=== PATIENT | female | born 1930 | race Two or more races ===

== ENCOUNTER 2019-06-28 09:35 | Outpatient (CLI) | payer MEDICARE, MEDICAID | END 2019-06-28 23:59 | disposition home health service (06) | LOC: WOU 09:35 | PROVIDERS: ATTEND Podiatrist Foot & Ankle Surgery | DX: I87.2 Venous insufficiency (chronic) (peripheral) (principal); L97.322 Non-pressure chronic ulcer of left ankle with fat layer exposed; L03.116 Cellulitis of left lower limb; I73.9 Peripheral vascular disease, unspecified; L84 Corns and callosities; B35.3 Tinea pedis; R60.0 Localized edema; M79.671 Pain in right foot | CPT/HCPCS: 11042; 11045; 87070-TC; 87075-TC; 87186-TC ==

== ENCOUNTER 2019-07-03 12:30 | Outpatient (CLI) | payer MEDICARE, MEDICAID | END 2019-07-03 23:59 | disposition home health service (06) | LOC: WOU 12:30 | PROVIDERS: ATTEND Podiatrist Foot & Ankle Surgery | DX: I87.2 Venous insufficiency (chronic) (peripheral) (principal); L97.322 Non-pressure chronic ulcer of left ankle with fat layer exposed; L97.512 Non-pressure chronic ulcer of other part of right foot with fat layer exposed; L03.116 Cellulitis of left lower limb; B96.5 Pseudomonas (aeruginosa) (mallei) (pseudomallei) as the cause of diseases classified elsewhere; I73.9 Peripheral vascular disease, unspecified; L84 Corns and callosities; M79.671 Pain in right foot; Z79.02 Long term (current) use of antithrombotics/antiplatelets | CPT/HCPCS: 11042; 11045; 87070-TC; 87075-TC; 87186-TC ==

== ENCOUNTER 2019-07-10 12:35 | Outpatient (CLI) | payer MEDICARE, MEDICAID | END 2019-07-10 23:59 | disposition home health service (06) | LOC: WOU 12:35 | PROVIDERS: ATTEND Podiatrist Foot & Ankle Surgery | DX: I87.2 Venous insufficiency (chronic) (peripheral) (principal); L97.322 Non-pressure chronic ulcer of left ankle with fat layer exposed; L03.116 Cellulitis of left lower limb; I73.9 Peripheral vascular disease, unspecified; M79.671 Pain in right foot; Z79.02 Long term (current) use of antithrombotics/antiplatelets | CPT/HCPCS: 11042; 11045 ==

== ENCOUNTER 2019-07-17 12:40 | Outpatient (CLI) | payer MEDICARE, MEDICAID | END 2019-07-17 23:59 | disposition home health service (06) | LOC: WOU 12:40 | PROVIDERS: ATTEND Podiatrist Foot & Ankle Surgery | DX: I87.2 Venous insufficiency (chronic) (peripheral) (principal); L97.322 Non-pressure chronic ulcer of left ankle with fat layer exposed; L03.116 Cellulitis of left lower limb; I73.9 Peripheral vascular disease, unspecified; L84 Corns and callosities; Z79.02 Long term (current) use of antithrombotics/antiplatelets | CPT/HCPCS: 11042; 11045 ==

== ENCOUNTER 2019-07-24 13:20 | Outpatient (CLI) | payer MEDICARE, MEDICAID | END 2019-07-24 23:59 | disposition home health service (06) | LOC: WOU 13:20 | PROVIDERS: ATTEND Podiatrist Foot & Ankle Surgery | DX: I87.2 Venous insufficiency (chronic) (peripheral) (principal); L97.322 Non-pressure chronic ulcer of left ankle with fat layer exposed; I73.9 Peripheral vascular disease, unspecified; L03.116 Cellulitis of left lower limb; L84 Corns and callosities; M79.671 Pain in right foot | CPT/HCPCS: 11042; 11045 ==

== ENCOUNTER 2019-07-31 12:35 | Outpatient (CLI) | payer MEDICARE, MEDICAID | END 2019-07-31 23:59 | disposition home health service (06) | LOC: WOU 12:35 | PROVIDERS: ATTEND Podiatrist Foot & Ankle Surgery | DX: I87.2 Venous insufficiency (chronic) (peripheral) (principal); L97.322 Non-pressure chronic ulcer of left ankle with fat layer exposed; L03.116 Cellulitis of left lower limb; B96.5 Pseudomonas (aeruginosa) (mallei) (pseudomallei) as the cause of diseases classified elsewhere; I73.9 Peripheral vascular disease, unspecified; Z79.02 Long term (current) use of antithrombotics/antiplatelets | CPT/HCPCS: 11042 ==

== ENCOUNTER 2019-08-07 12:30 | Outpatient (CLI) | payer MEDICARE, MEDICAID | END 2019-08-07 23:59 | disposition home health service (06) | LOC: WOU 12:30 | PROVIDERS: ATTEND Podiatrist Foot & Ankle Surgery | DX: I87.2 Venous insufficiency (chronic) (peripheral) (principal); L97.322 Non-pressure chronic ulcer of left ankle with fat layer exposed; L03.116 Cellulitis of left lower limb; B96.5 Pseudomonas (aeruginosa) (mallei) (pseudomallei) as the cause of diseases classified elsewhere; I73.9 Peripheral vascular disease, unspecified; L84 Corns and callosities; M79.671 Pain in right foot; Z79.02 Long term (current) use of antithrombotics/antiplatelets | CPT/HCPCS: 11042 ==

== ENCOUNTER 2019-08-14 10:30 | Outpatient (CLI) | payer MEDICARE, MEDICAID | END 2019-08-14 23:59 | disposition home health service (06) | LOC: WOU 10:30 | PROVIDERS: ATTEND Podiatrist Foot & Ankle Surgery | DX: I87.2 Venous insufficiency (chronic) (peripheral) (principal); L97.322 Non-pressure chronic ulcer of left ankle with fat layer exposed; L03.116 Cellulitis of left lower limb; I73.9 Peripheral vascular disease, unspecified; L84 Corns and callosities; M79.671 Pain in right foot; Z79.02 Long term (current) use of antithrombotics/antiplatelets | CPT/HCPCS: 11042; 11045 ==

== ENCOUNTER 2019-08-28 12:45 | Outpatient (CLI) | payer MEDICARE, MEDICAID | END 2019-08-28 23:59 | disposition home health service (06) | LOC: WOU 12:45 | PROVIDERS: ATTEND Podiatrist Foot & Ankle Surgery | DX: I87.2 Venous insufficiency (chronic) (peripheral) (principal); L97.322 Non-pressure chronic ulcer of left ankle with fat layer exposed; I73.9 Peripheral vascular disease, unspecified; L03.116 Cellulitis of left lower limb; M79.671 Pain in right foot; L84 Corns and callosities; Z79.02 Long term (current) use of antithrombotics/antiplatelets | CPT/HCPCS: 11042; 11045 ==

== ENCOUNTER 2019-09-04 12:45 | Outpatient (CLI) | payer MEDICARE, MEDICAID | END 2019-09-04 23:59 | disposition home health service (06) | LOC: WOU 12:45 | PROVIDERS: ATTEND Podiatrist Foot & Ankle Surgery | DX: I87.2 Venous insufficiency (chronic) (peripheral) (principal); L97.322 Non-pressure chronic ulcer of left ankle with fat layer exposed; I73.9 Peripheral vascular disease, unspecified; M79.671 Pain in right foot; Z79.02 Long term (current) use of antithrombotics/antiplatelets | CPT/HCPCS: 11042 ==

== ENCOUNTER 2019-09-11 12:50 | Outpatient (CLI) | payer MEDICARE, MEDICAID | END 2019-09-11 23:59 | disposition home health service (06) | LOC: WOU 12:50 | PROVIDERS: ATTEND Podiatrist Foot & Ankle Surgery | DX: I87.2 Venous insufficiency (chronic) (peripheral) (principal); L97.322 Non-pressure chronic ulcer of left ankle with fat layer exposed; I73.9 Peripheral vascular disease, unspecified; Z79.02 Long term (current) use of antithrombotics/antiplatelets | CPT/HCPCS: 11042 ==

== ENCOUNTER 2019-09-18 13:05 | Outpatient (CLI) | payer MEDICARE, MEDICAID | END 2019-09-18 23:59 | disposition home health service (06) | LOC: WOU 13:05 | PROVIDERS: ATTEND Podiatrist Foot & Ankle Surgery | DX: I87.2 Venous insufficiency (chronic) (peripheral) (principal); L97.322 Non-pressure chronic ulcer of left ankle with fat layer exposed; I73.9 Peripheral vascular disease, unspecified; L84 Corns and callosities; M79.671 Pain in right foot; Z79.02 Long term (current) use of antithrombotics/antiplatelets | CPT/HCPCS: 11042 ==

== ENCOUNTER 2019-09-25 12:45 | Outpatient (CLI) | payer MEDICARE, MEDICAID | END 2019-09-25 23:59 | disposition home health service (06) | LOC: WOU 12:45 | PROVIDERS: ATTEND Podiatrist Foot & Ankle Surgery | DX: I87.2 Venous insufficiency (chronic) (peripheral) (principal); L97.322 Non-pressure chronic ulcer of left ankle with fat layer exposed; L84 Corns and callosities; I73.9 Peripheral vascular disease, unspecified; M79.675 Pain in left toe(s); Z79.02 Long term (current) use of antithrombotics/antiplatelets; M06.9 Rheumatoid arthritis, unspecified; Z96.642 Presence of left artificial hip joint | CPT/HCPCS: 11042 ==

== ENCOUNTER 2019-10-02 12:55 | Outpatient (CLI) | payer MEDICARE, MEDICAID | END 2019-10-02 23:59 | disposition home health service (06) | LOC: WOU 12:55 | PROVIDERS: ATTEND Podiatrist Foot & Ankle Surgery | DX: I87.2 Venous insufficiency (chronic) (peripheral) (principal); L97.322 Non-pressure chronic ulcer of left ankle with fat layer exposed; L03.116 Cellulitis of left lower limb; I73.9 Peripheral vascular disease, unspecified; M79.671 Pain in right foot; L84 Corns and callosities; Z79.02 Long term (current) use of antithrombotics/antiplatelets | CPT/HCPCS: 11042 ==

== ENCOUNTER 2019-10-09 12:43 | Outpatient (CLI) | payer MEDICARE, MEDICAID | END 2019-10-09 23:59 | disposition home health service (06) | LOC: WOU 12:43 | PROVIDERS: ATTEND Podiatrist Foot & Ankle Surgery | DX: I87.2 Venous insufficiency (chronic) (peripheral) (principal); L97.322 Non-pressure chronic ulcer of left ankle with fat layer exposed; L03.116 Cellulitis of left lower limb; L84 Corns and callosities; I73.9 Peripheral vascular disease, unspecified; M79.675 Pain in left toe(s); Z95.810 Presence of automatic (implantable) cardiac defibrillator; Z79.02 Long term (current) use of antithrombotics/antiplatelets | CPT/HCPCS: 11042 ==

== ENCOUNTER 2019-10-16 12:45 | Outpatient (CLI) | payer MEDICARE, MEDICAID ==
[2019-10-16] MEDS ORDERED: LIDOCAINE SOLN 4% 50 ML BOTTLE ONE (12:47)
[2019-10-16] MEDS ORDERED: GENTAMICIN 0.1% CREAM 15 GM TUBE ONE (13:09)
[2019-10-16] MEDS ORDERED: CLOTRIMAZOLE 1% 15 GM TUBE TP ONE (13:09)
[2019-10-16] MEDS ORDERED: MUPIROCIN 2% CREAM 15 GM TUBE TP ONE (13:09)
[2019-10-16] MEDS ORDERED: UREA 10% -AHA 4% CREAM 57 GM TUBE ONE (13:10)
[2019-10-16] MEDS ORDERED: HYDROCORTISONE 1% CREAM 28.35 GM TUBE TP ONE (13:10)
== END 2019-10-16 23:59 | disposition home health service (06) ==
LOC: WOU 12:45
PROVIDERS: ATTEND Podiatrist Foot & Ankle Surgery
DX: I87.2 Venous insufficiency (chronic) (peripheral) (principal); L97.322 Non-pressure chronic ulcer of left ankle with fat layer exposed; I73.9 Peripheral vascular disease, unspecified; L84 Corns and callosities; M79.672 Pain in left foot; M79.671 Pain in right foot; Z79.02 Long term (current) use of antithrombotics/antiplatelets
CPT/HCPCS: 11042

== ENCOUNTER 2019-10-23 13:30 | Outpatient (CLI) | payer MEDICARE, MEDICAID ==
[2019-10-23] MEDS ORDERED: UREA 10% -AHA 4% CREAM 57 GM TUBE ONE (14:07)
[2019-10-23] MEDS ORDERED: MUPIROCIN 2% CREAM 15 GM TUBE TP ONE (14:08)
[2019-10-23] MEDS ORDERED: HYDROCORTISONE 1% CREAM 28.35 GM TUBE TP ONE (14:11)
[2019-10-23] MEDS ORDERED: CLOTRIMAZOLE 1% 15 GM TUBE TP ONE (14:12)
[2019-10-23] MEDS ORDERED: GENTAMICIN 0.1% CREAM 15 GM TUBE ONE (14:13)
== END 2019-10-23 23:59 | disposition home health service (06) ==
LOC: WOU 13:30
PROVIDERS: ATTEND Podiatrist Foot & Ankle Surgery
DX: I87.2 Venous insufficiency (chronic) (peripheral) (principal); L97.322 Non-pressure chronic ulcer of left ankle with fat layer exposed; L03.116 Cellulitis of left lower limb; I73.9 Peripheral vascular disease, unspecified; L84 Corns and callosities; M79.675 Pain in left toe(s); M79.671 Pain in right foot; Z79.02 Long term (current) use of antithrombotics/antiplatelets
CPT/HCPCS: 11042; 11045

== ENCOUNTER 2019-10-30 13:00 | Outpatient (CLI) | payer MEDICARE, MEDICAID | END 2019-10-30 23:59 | disposition home health service (06) | LOC: WOU 13:00 | PROVIDERS: ATTEND Podiatrist Foot & Ankle Surgery | DX: I87.2 Venous insufficiency (chronic) (peripheral) (principal); L97.322 Non-pressure chronic ulcer of left ankle with fat layer exposed; I73.9 Peripheral vascular disease, unspecified; L84 Corns and callosities; B35.1 Tinea unguium; M79.674 Pain in right toe(s); M79.675 Pain in left toe(s); L60.2 Onychogryphosis; Z79.02 Long term (current) use of antithrombotics/antiplatelets | CPT/HCPCS: 11042 ==

== ENCOUNTER 2019-11-06 12:40 | Outpatient (CLI) | payer MEDICARE, MEDICAID ==
[2019-11-06] MEDS ORDERED: CLOTRIMAZOLE 1% 15 GM TUBE TP ONE (13:50)
== END 2019-11-06 23:59 | disposition home health service (06) ==
LOC: WOU 12:40
PROVIDERS: ATTEND Podiatrist Foot & Ankle Surgery
DX: I87.2 Venous insufficiency (chronic) (peripheral) (principal); L97.322 Non-pressure chronic ulcer of left ankle with fat layer exposed; I73.9 Peripheral vascular disease, unspecified; L84 Corns and callosities; B35.1 Tinea unguium; M79.675 Pain in left toe(s); M79.674 Pain in right toe(s); Z96.642 Presence of left artificial hip joint; Z79.02 Long term (current) use of antithrombotics/antiplatelets
CPT/HCPCS: 11042

== ENCOUNTER 2019-11-13 12:45 | Outpatient (CLI) | payer MEDICARE, MEDICAID ==
[2019-11-13] MEDS ORDERED: LIDOCAINE SOLN 4% 50 ML BOTTLE ONE (12:49)
[2019-11-13] MEDS ORDERED: MUPIROCIN 2% CREAM 15 GM TUBE TP ONE (13:20)
[2019-11-13] MEDS ORDERED: GENTAMICIN 0.1% CREAM 15 GM TUBE ONE (13:21)
== END 2019-11-13 23:59 | disposition home health service (06) ==
LOC: WOU 12:45
PROVIDERS: ATTEND Podiatrist Foot & Ankle Surgery
DX: I87.2 Venous insufficiency (chronic) (peripheral) (principal); L97.322 Non-pressure chronic ulcer of left ankle with fat layer exposed; I73.9 Peripheral vascular disease, unspecified; B35.1 Tinea unguium; Z79.02 Long term (current) use of antithrombotics/antiplatelets
CPT/HCPCS: 11042; A6452

== ENCOUNTER 2019-11-20 12:40 | Outpatient (CLI) | payer MEDICARE, MEDICAID ==
[2019-11-20] MEDS ORDERED: LIDOCAINE SOLN 4% 50 ML BOTTLE ONE (13:11)
== END 2019-11-20 23:59 | disposition home health service (06) ==
LOC: WOU 12:40
PROVIDERS: ATTEND Podiatrist Foot & Ankle Surgery
DX: I87.2 Venous insufficiency (chronic) (peripheral) (principal); L97.322 Non-pressure chronic ulcer of left ankle with fat layer exposed; I73.9 Peripheral vascular disease, unspecified; B35.1 Tinea unguium; L84 Corns and callosities; M79.675 Pain in left toe(s); M79.674 Pain in right toe(s); Z79.02 Long term (current) use of antithrombotics/antiplatelets
CPT/HCPCS: 11042; A6253

== ENCOUNTER 2019-11-27 12:40 | Outpatient (CLI) | payer MEDICARE, MEDICAID ==
[2019-11-27] MEDS ORDERED: GENTAMICIN 0.1% CREAM 15 GM TUBE ONE (13:54)
== END 2019-11-27 23:59 | disposition home health service (06) ==
LOC: WOU 12:40
PROVIDERS: ATTEND Podiatrist Foot & Ankle Surgery
DX: I87.2 Venous insufficiency (chronic) (peripheral) (principal); L97.322 Non-pressure chronic ulcer of left ankle with fat layer exposed; I73.9 Peripheral vascular disease, unspecified; B35.1 Tinea unguium; M79.675 Pain in left toe(s); M79.674 Pain in right toe(s); Z79.02 Long term (current) use of antithrombotics/antiplatelets
CPT/HCPCS: 11042; A6253

== ENCOUNTER 2019-12-04 12:55 | Outpatient (CLI) | payer MEDICARE, MEDICAID ==
[2019-12-04] MEDS ORDERED: LIDOCAINE SOLN 4% 50 ML BOTTLE ONE (12:56)
[2019-12-04] MEDS ORDERED: MUPIROCIN 2% CREAM 15 GM TUBE TP ONE (13:31)
[2019-12-04] MEDS ORDERED: GENTAMICIN 0.1% CREAM 15 GM TUBE ONE (13:31)
[2019-12-04] MEDS ORDERED: HYDROCORTISONE 1% CREAM 28.35 GM TUBE TP ONE (13:32)
== END 2019-12-04 23:59 | disposition home health service (06) ==
LOC: WOU 12:55
PROVIDERS: ATTEND Podiatrist Foot & Ankle Surgery
DX: I87.2 Venous insufficiency (chronic) (peripheral) (principal); L97.322 Non-pressure chronic ulcer of left ankle with fat layer exposed; I73.9 Peripheral vascular disease, unspecified; B35.1 Tinea unguium; M79.675 Pain in left toe(s); M79.674 Pain in right toe(s); Z79.02 Long term (current) use of antithrombotics/antiplatelets
CPT/HCPCS: 11042; A6253

== ENCOUNTER 2019-12-11 12:40 | Outpatient (CLI) | payer MEDICARE, MEDICAID ==
[2019-12-11] MEDS ORDERED: MUPIROCIN 2% CREAM 15 GM TUBE TP ONE (13:20)
[2019-12-11] MEDS ORDERED: GENTAMICIN 0.1% CREAM 15 GM TUBE ONE (13:20)
== END 2019-12-11 23:59 | disposition home health service (06) ==
LOC: WOU 12:40
PROVIDERS: ATTEND Podiatrist Foot & Ankle Surgery
DX: I87.2 Venous insufficiency (chronic) (peripheral) (principal); L97.322 Non-pressure chronic ulcer of left ankle with fat layer exposed; I73.9 Peripheral vascular disease, unspecified; L84 Corns and callosities; B35.1 Tinea unguium; M79.675 Pain in left toe(s); M79.674 Pain in right toe(s); M20.42 Other hammer toe(s) (acquired), left foot; Z79.02 Long term (current) use of antithrombotics/antiplatelets
CPT/HCPCS: 11042; A6253

== ENCOUNTER 2019-12-25 12:40 | Outpatient (CLI) | payer MEDICARE, MEDICAID ==
[2019-12-25] MEDS ORDERED: MUPIROCIN 2% CREAM 15 GM TUBE TP ONE (13:03)
[2019-12-25] MEDS ORDERED: GENTAMICIN 0.1% CREAM 15 GM TUBE ONE (13:03)
== END 2019-12-25 23:59 | disposition home health service (06) ==
LOC: WOU 12:40
PROVIDERS: ATTEND Podiatrist Foot & Ankle Surgery
DX: I87.2 Venous insufficiency (chronic) (peripheral) (principal); L97.322 Non-pressure chronic ulcer of left ankle with fat layer exposed; B35.1 Tinea unguium; M79.675 Pain in left toe(s); M79.674 Pain in right toe(s); Z79.02 Long term (current) use of antithrombotics/antiplatelets
CPT/HCPCS: 11042; A6253

== ENCOUNTER 2020-01-01 12:40 | Outpatient (CLI) | payer MEDICARE, MEDICAID ==
[2020-01-01] MEDS ORDERED: MUPIROCIN 2% CREAM 15 GM TUBE TP ONE (12:46)
[2020-01-01] MEDS ORDERED: GENTAMICIN 0.1% CREAM 15 GM TUBE ONE (12:47)
[2020-01-01] MEDS ORDERED: LIDOCAINE SOLN 4% 50 ML BOTTLE ONE (12:48)
== END 2020-01-01 23:59 | disposition home health service (06) ==
LOC: WOU 12:40
PROVIDERS: ATTEND Podiatrist Foot & Ankle Surgery
DX: I87.2 Venous insufficiency (chronic) (peripheral) (principal); L97.322 Non-pressure chronic ulcer of left ankle with fat layer exposed; L89.891 Pressure ulcer of other site, stage 1; B35.1 Tinea unguium; L84 Corns and callosities; M79.675 Pain in left toe(s); Z96.642 Presence of left artificial hip joint
CPT/HCPCS: 11043; A6253

== ENCOUNTER 2020-01-08 12:50 | Outpatient (CLI) | payer MEDICARE, MEDICAID ==
[~2020-01-08 12:50] MED LIST: LIDOCAINE SOLN 4% 50 ML BOTTLE ONE
[2020-01-08] MEDS ORDERED: COLLAGENASE 5 GM TUBE UD TP ONE (13:57)
[2020-01-08] MEDS ORDERED: TDAP [DIPH/PERTUSSIS/TET] 0.5 ML VIAL IM ONE (14:30)
== END 2020-01-08 23:59 | disposition home health service (06) ==
LOC: WOU 12:50
PROVIDERS: ATTEND Podiatrist Foot & Ankle Surgery
DX: I87.2 Venous insufficiency (chronic) (peripheral) (principal); L97.322 Non-pressure chronic ulcer of left ankle with fat layer exposed; S81.811A Laceration without foreign body, right lower leg, initial encounter; W54.8XXA Other contact with dog, initial encounter; Y92.89 Other specified places as the place of occurrence of the external cause; I73.9 Peripheral vascular disease, unspecified; B35.1 Tinea unguium; Z79.02 Long term (current) use of antithrombotics/antiplatelets
CPT/HCPCS: 11042; 90471; 90715; A6253

== ENCOUNTER 2020-01-10 10:00 | Outpatient (CLI) | payer MEDICARE, MEDICAID | END 2020-01-10 23:59 | disposition home health service (06) | LOC: WOU 10:00 | PROVIDERS: ATTEND Podiatrist Foot & Ankle Surgery | DX: I87.2 Venous insufficiency (chronic) (peripheral) (principal); L97.322 Non-pressure chronic ulcer of left ankle with fat layer exposed; L03.115 Cellulitis of right lower limb; S81.811A Laceration without foreign body, right lower leg, initial encounter; W54.8XXA Other contact with dog, initial encounter; Y92.89 Other specified places as the place of occurrence of the external cause; L84 Corns and callosities; B35.1 Tinea unguium; Z79.02 Long term (current) use of antithrombotics/antiplatelets | CPT/HCPCS: 11042; A6253 ==

== ENCOUNTER 2020-01-14 09:45 | Outpatient (CLI) | payer MEDICARE, MEDICAID ==
[2020-01-14] MEDS ORDERED: CEFTRIAXONE 1 G VIAL IM ONE (11:00)
== END 2020-01-14 23:59 | disposition home health service (06) ==
LOC: WOU 09:45
PROVIDERS: ATTEND Podiatrist Foot & Ankle Surgery
DX: I87.2 Venous insufficiency (chronic) (peripheral) (principal); L97.322 Non-pressure chronic ulcer of left ankle with fat layer exposed; L03.115 Cellulitis of right lower limb; S81.811A Laceration without foreign body, right lower leg, initial encounter; W54.8XXA Other contact with dog, initial encounter; Y92.89 Other specified places as the place of occurrence of the external cause; Z79.02 Long term (current) use of antithrombotics/antiplatelets
CPT/HCPCS: 11042; 96372; A6253; J0696

== ENCOUNTER 2020-01-17 09:45 | Outpatient (CLI) | payer MEDICARE, MEDICAID ==
[2020-01-17] MEDS ORDERED: LIDOCAINE SOLN 4% 50 ML BOTTLE ONE (10:00)
[2020-01-17] MEDS ORDERED: CEFTRIAXONE 1 G VIAL IM ONE (10:30)
[2020-01-17] MEDS ORDERED: MUPIROCIN 2% CREAM 15 GM TUBE TP ONE (10:37)
[2020-01-17] MEDS ORDERED: GENTAMICIN 0.1% CREAM 15 GM TUBE ONE (10:38)
== END 2020-01-17 23:59 | disposition home health service (06) ==
LOC: WOU 09:45
PROVIDERS: ATTEND Podiatrist Foot & Ankle Surgery
DX: I87.2 Venous insufficiency (chronic) (peripheral) (principal); L97.322 Non-pressure chronic ulcer of left ankle with fat layer exposed; L03.115 Cellulitis of right lower limb; S81.811A Laceration without foreign body, right lower leg, initial encounter; Y92.89 Other specified places as the place of occurrence of the external cause; W54.8XXA Other contact with dog, initial encounter; L84 Corns and callosities; B35.1 Tinea unguium; M79.675 Pain in left toe(s); Z79.02 Long term (current) use of antithrombotics/antiplatelets
CPT/HCPCS: 11042; 87070; 87075; 96372; A6253; J0696

== ENCOUNTER 2020-01-22 12:45 | Outpatient (CLI) | payer MEDICARE, MEDICAID ==
[2020-01-22] MEDS ORDERED: LIDOCAINE SOLN 4% 50 ML BOTTLE ONE (13:00)
== END 2020-01-22 23:59 | disposition home health service (06) ==
LOC: WOU 12:45
PROVIDERS: ATTEND Podiatrist Foot & Ankle Surgery
DX: I87.2 Venous insufficiency (chronic) (peripheral) (principal); L97.322 Non-pressure chronic ulcer of left ankle with fat layer exposed; S81.811A Laceration without foreign body, right lower leg, initial encounter; W54.8XXA Other contact with dog, initial encounter; Y92.89 Other specified places as the place of occurrence of the external cause; L03.115 Cellulitis of right lower limb; L84 Corns and callosities; B35.1 Tinea unguium; M79.675 Pain in left toe(s)
CPT/HCPCS: 11042; A6253

== ENCOUNTER 2020-01-24 09:55 | Outpatient (CLI) | payer MEDICARE, MEDICAID ==
[2020-01-24] MEDS ORDERED: LIDOCAINE SOLN 4% 50 ML BOTTLE ONE (10:17)
== END 2020-01-24 23:59 | disposition home health service (06) ==
LOC: WOU 09:55
PROVIDERS: ATTEND Podiatrist Foot & Ankle Surgery
DX: I87.2 Venous insufficiency (chronic) (peripheral) (principal); L97.322 Non-pressure chronic ulcer of left ankle with fat layer exposed; L03.115 Cellulitis of right lower limb; S81.811A Laceration without foreign body, right lower leg, initial encounter; W54.8XXA Other contact with dog, initial encounter; Y92.89 Other specified places as the place of occurrence of the external cause; B35.1 Tinea unguium; Z79.02 Long term (current) use of antithrombotics/antiplatelets
CPT/HCPCS: 11042; A6253

== ENCOUNTER 2020-01-29 12:45 | Outpatient (CLI) | payer MEDICARE, MEDICAID ==
[2020-01-29] MEDS ORDERED: GENTAMICIN 0.1% CREAM 15 GM TUBE ONE (13:40)
== END 2020-01-29 23:59 | disposition home health service (06) ==
LOC: WOU 12:45
PROVIDERS: ATTEND Podiatrist Foot & Ankle Surgery
DX: I87.2 Venous insufficiency (chronic) (peripheral) (principal); L97.322 Non-pressure chronic ulcer of left ankle with fat layer exposed; L97.812 Non-pressure chronic ulcer of other part of right lower leg with fat layer exposed; L03.115 Cellulitis of right lower limb; I73.9 Peripheral vascular disease, unspecified; L84 Corns and callosities; B35.1 Tinea unguium; Z96.642 Presence of left artificial hip joint; Z79.02 Long term (current) use of antithrombotics/antiplatelets
CPT/HCPCS: 11042; A6253

== ENCOUNTER 2020-02-12 12:55 | Outpatient (CLI) | payer MEDICARE, MEDICAID | END 2020-02-12 23:59 | disposition home health service (06) | LOC: WOU 12:55 | PROVIDERS: ATTEND Podiatrist Foot & Ankle Surgery | DX: I87.2 Venous insufficiency (chronic) (peripheral) (principal); L97.322 Non-pressure chronic ulcer of left ankle with fat layer exposed; S81.811A Laceration without foreign body, right lower leg, initial encounter; W54.8XXA Other contact with dog, initial encounter; Y92.89 Other specified places as the place of occurrence of the external cause; I73.9 Peripheral vascular disease, unspecified; L84 Corns and callosities; B35.1 Tinea unguium; M79.675 Pain in left toe(s); Z79.02 Long term (current) use of antithrombotics/antiplatelets | CPT/HCPCS: 11042 ==

== ENCOUNTER 2020-02-19 12:40 | Outpatient (CLI) | payer MEDICARE, MEDICAID ==
[2020-02-19] MEDS ORDERED: LIDOCAINE SOLN 4% 50 ML BOTTLE ONE (13:04)
== END 2020-02-19 23:59 | disposition home health service (06) ==
LOC: WOU 12:40
PROVIDERS: ATTEND Podiatrist Foot & Ankle Surgery
DX: I87.2 Venous insufficiency (chronic) (peripheral) (principal); L97.322 Non-pressure chronic ulcer of left ankle with fat layer exposed; S81.811A Laceration without foreign body, right lower leg, initial encounter; W54.8XXA Other contact with dog, initial encounter; Y92.89 Other specified places as the place of occurrence of the external cause; I73.9 Peripheral vascular disease, unspecified; L84 Corns and callosities; B35.1 Tinea unguium; M79.675 Pain in left toe(s); Z79.02 Long term (current) use of antithrombotics/antiplatelets
CPT/HCPCS: C5271; Q4117 ×2

== ENCOUNTER 2020-02-26 12:45 | Outpatient (CLI) | payer MEDICARE, MEDICAID ==
[2020-02-26] MEDS ORDERED: LIDOCAINE SOLN 4% 50 ML BOTTLE ONE (12:56)
== END 2020-02-26 23:59 | disposition home health service (06) ==
LOC: WOU 12:45
PROVIDERS: ATTEND Podiatrist Foot & Ankle Surgery
DX: I87.2 Venous insufficiency (chronic) (peripheral) (principal); L97.322 Non-pressure chronic ulcer of left ankle with fat layer exposed; I73.9 Peripheral vascular disease, unspecified; L84 Corns and callosities; M79.675 Pain in left toe(s); B35.1 Tinea unguium; Z79.02 Long term (current) use of antithrombotics/antiplatelets; Z79.52 Long term (current) use of systemic steroids
CPT/HCPCS: 11042

== ENCOUNTER 2020-03-04 12:45 | Outpatient (CLI) | payer MEDICARE, MEDICAID | END 2020-03-04 23:59 | disposition home health service (06) | LOC: WOU 12:45 | PROVIDERS: ATTEND Podiatrist Foot & Ankle Surgery | DX: I87.2 Venous insufficiency (chronic) (peripheral) (principal); L97.322 Non-pressure chronic ulcer of left ankle with fat layer exposed; I73.9 Peripheral vascular disease, unspecified; L84 Corns and callosities; B35.1 Tinea unguium; M79.675 Pain in left toe(s); M06.9 Rheumatoid arthritis, unspecified; Z96.642 Presence of left artificial hip joint; Z79.02 Long term (current) use of antithrombotics/antiplatelets | CPT/HCPCS: 11042 ==

== ENCOUNTER 2020-03-11 12:55 | Outpatient (CLI) | payer MEDICARE, MEDICAID | END 2020-03-11 23:59 | disposition home health service (06) | LOC: WOU 12:55 | PROVIDERS: ATTEND Podiatrist Foot & Ankle Surgery | DX: I87.2 Venous insufficiency (chronic) (peripheral) (principal); L97.322 Non-pressure chronic ulcer of left ankle with fat layer exposed; I73.9 Peripheral vascular disease, unspecified; L84 Corns and callosities; B35.1 Tinea unguium; Z79.02 Long term (current) use of antithrombotics/antiplatelets | CPT/HCPCS: 11042 ==

== ENCOUNTER 2020-03-18 12:35 | Outpatient (CLI) | payer MEDICARE, MEDICAID ==
[2020-03-18] MEDS ORDERED: LIDOCAINE SOLN 4% 50 ML BOTTLE ONE (12:44)
== END 2020-03-18 23:59 | disposition home health service (06) ==
LOC: WOU 12:35
PROVIDERS: ATTEND Podiatrist Foot & Ankle Surgery
DX: I87.2 Venous insufficiency (chronic) (peripheral) (principal); L97.322 Non-pressure chronic ulcer of left ankle with fat layer exposed; I73.9 Peripheral vascular disease, unspecified; L84 Corns and callosities; B35.1 Tinea unguium; Z79.02 Long term (current) use of antithrombotics/antiplatelets
CPT/HCPCS: 11042; G0463

== ENCOUNTER 2020-03-25 13:30 | Outpatient (CLI) | payer MEDICARE, MEDICAID ==
[2020-03-25] MEDS ORDERED: LIDOCAINE SOLN 4% 50 ML BOTTLE ONE (13:45)
== END 2020-03-25 23:59 | disposition home health service (06) ==
LOC: WOU 13:30
PROVIDERS: ATTEND Podiatrist Foot & Ankle Surgery
DX: I87.2 Venous insufficiency (chronic) (peripheral) (principal); L97.322 Non-pressure chronic ulcer of left ankle with fat layer exposed; I73.9 Peripheral vascular disease, unspecified; L84 Corns and callosities; B35.1 Tinea unguium; Z79.02 Long term (current) use of antithrombotics/antiplatelets; M79.672 Pain in left foot
CPT/HCPCS: 11042; A6253

== ENCOUNTER 2020-04-01 12:40 | Outpatient (CLI) | payer MEDICARE, MEDICAID | END 2020-04-01 23:59 | disposition home health service (06) | LOC: WOU 12:40 | PROVIDERS: ATTEND Podiatrist Foot & Ankle Surgery | DX: I87.2 Venous insufficiency (chronic) (peripheral) (principal); L97.322 Non-pressure chronic ulcer of left ankle with fat layer exposed; I73.9 Peripheral vascular disease, unspecified; L84 Corns and callosities; B35.1 Tinea unguium; Z79.02 Long term (current) use of antithrombotics/antiplatelets | CPT/HCPCS: 11042 ==

== ENCOUNTER 2020-04-08 13:15 | Outpatient (CLI) | payer MEDICARE, MEDICAID | END 2020-04-08 23:59 | disposition home health service (06) | LOC: WOU 13:15 | PROVIDERS: ATTEND Podiatrist Foot & Ankle Surgery | DX: I87.2 Venous insufficiency (chronic) (peripheral) (principal); L97.322 Non-pressure chronic ulcer of left ankle with fat layer exposed; I73.9 Peripheral vascular disease, unspecified; L84 Corns and callosities; B35.1 Tinea unguium; Z79.02 Long term (current) use of antithrombotics/antiplatelets | CPT/HCPCS: 11042; A6253 ==

== ENCOUNTER 2020-04-15 13:16 | Outpatient (CLI) | payer MEDICARE, MEDICAID | END 2020-04-15 23:59 | disposition home health service (06) | LOC: WOU 13:16 | PROVIDERS: ATTEND Podiatrist Foot & Ankle Surgery | DX: I87.2 Venous insufficiency (chronic) (peripheral) (principal); L97.322 Non-pressure chronic ulcer of left ankle with fat layer exposed; I73.9 Peripheral vascular disease, unspecified; L84 Corns and callosities; B35.1 Tinea unguium; M79.675 Pain in left toe(s); Z79.02 Long term (current) use of antithrombotics/antiplatelets | CPT/HCPCS: 11042; A6253 ==

== ENCOUNTER 2020-04-22 12:50 | Outpatient (CLI) | payer MEDICARE, MEDICAID | END 2020-04-22 23:59 | disposition home health service (06) | LOC: WOU 12:50 | PROVIDERS: ATTEND Podiatrist Foot & Ankle Surgery | DX: I87.2 Venous insufficiency (chronic) (peripheral) (principal); L97.322 Non-pressure chronic ulcer of left ankle with fat layer exposed; L84 Corns and callosities; I73.9 Peripheral vascular disease, unspecified; B35.1 Tinea unguium; M79.675 Pain in left toe(s); Z79.02 Long term (current) use of antithrombotics/antiplatelets | CPT/HCPCS: 11042 ==

== ENCOUNTER 2020-04-29 12:40 | Outpatient (CLI) | payer MEDICARE, MEDICAID | END 2020-04-29 23:59 | disposition home health service (06) | LOC: WOU 12:40 | PROVIDERS: ATTEND Podiatrist Foot & Ankle Surgery | DX: I87.2 Venous insufficiency (chronic) (peripheral) (principal); L97.322 Non-pressure chronic ulcer of left ankle with fat layer exposed; I73.9 Peripheral vascular disease, unspecified; L84 Corns and callosities; B35.1 Tinea unguium; Z79.02 Long term (current) use of antithrombotics/antiplatelets | CPT/HCPCS: 11042 ==

== ENCOUNTER 2020-05-06 12:45 | Outpatient (CLI) | payer MEDICARE, MEDICAID | END 2020-05-06 23:59 | disposition home health service (06) | LOC: WOU 12:45 | PROVIDERS: ATTEND Podiatrist Foot & Ankle Surgery | DX: I87.2 Venous insufficiency (chronic) (peripheral) (principal); L97.322 Non-pressure chronic ulcer of left ankle with fat layer exposed; L84 Corns and callosities; I73.9 Peripheral vascular disease, unspecified; M79.675 Pain in left toe(s); B35.1 Tinea unguium; Z79.02 Long term (current) use of antithrombotics/antiplatelets | CPT/HCPCS: 11042; A6253 ==

== ENCOUNTER 2020-05-20 12:40 | Outpatient (CLI) | payer MEDICARE, MEDICAID ==
[2020-05-20] MEDS ORDERED: HYDROCORTISONE 1% CREAM 28.35 GM TUBE TP ONE (13:17)
== END 2020-05-20 23:59 | disposition home health service (06) ==
LOC: WOU 12:40
PROVIDERS: ATTEND Podiatrist Foot & Ankle Surgery
DX: I87.2 Venous insufficiency (chronic) (peripheral) (principal); L97.322 Non-pressure chronic ulcer of left ankle with fat layer exposed; S90.02XA Contusion of left ankle, initial encounter; X58.XXXA Exposure to other specified factors, initial encounter; Y92.89 Other specified places as the place of occurrence of the external cause; I73.9 Peripheral vascular disease, unspecified; L84 Corns and callosities; B35.1 Tinea unguium; M79.672 Pain in left foot; M79.675 Pain in left toe(s)
CPT/HCPCS: 10160; 11042; 87070; 87075; A6253

== ENCOUNTER 2020-05-27 12:35 | Outpatient (CLI) | payer MEDICARE, MEDICAID ==
[2020-05-27] MEDS ORDERED: LIDOCAINE SOLN 4% 50 ML BOTTLE ONE (12:53)
[2020-05-27] MEDS ORDERED: HYDROCORTISONE 1% CREAM 28.35 GM TUBE TP ONE (13:17)
== END 2020-05-27 23:59 | disposition home health service (06) ==
LOC: WOU 12:35
PROVIDERS: ATTEND Podiatrist Foot & Ankle Surgery
DX: I87.2 Venous insufficiency (chronic) (peripheral) (principal); L97.322 Non-pressure chronic ulcer of left ankle with fat layer exposed; L84 Corns and callosities; I73.9 Peripheral vascular disease, unspecified; B35.1 Tinea unguium; Z79.02 Long term (current) use of antithrombotics/antiplatelets
CPT/HCPCS: 11042; A6253

== ENCOUNTER 2020-06-03 12:40 | Outpatient (CLI) | payer MEDICARE, MEDICAID ==
[2020-06-03] MEDS ORDERED: LIDOCAINE SOLN 4% 50 ML BOTTLE ONE (13:05)
== END 2020-06-03 23:59 | disposition home health service (06) ==
LOC: WOU 12:40
PROVIDERS: ATTEND Podiatrist Foot & Ankle Surgery
DX: I87.2 Venous insufficiency (chronic) (peripheral) (principal); L97.322 Non-pressure chronic ulcer of left ankle with fat layer exposed; I73.9 Peripheral vascular disease, unspecified; M79.675 Pain in left toe(s); L84 Corns and callosities; B35.1 Tinea unguium; Z79.02 Long term (current) use of antithrombotics/antiplatelets; Z79.52 Long term (current) use of systemic steroids
CPT/HCPCS: 11042; A6253

== ENCOUNTER 2020-06-10 12:45 | Outpatient (CLI) | payer MEDICARE, OTHER ==
[2020-06-10] MEDS ORDERED: LIDOCAINE SOLN 4% 50 ML BOTTLE ONE (12:52)
[2020-06-10] MEDS ORDERED: TRIAMCINOLONE ACETONIDE 0.1% CR 15 GM TUBE TP ONE (13:26)
== END 2020-06-10 23:59 | disposition home health service (06) ==
LOC: WOU 12:45
PROVIDERS: ATTEND Podiatrist Foot & Ankle Surgery
DX: I87.2 Venous insufficiency (chronic) (peripheral) (principal); L97.322 Non-pressure chronic ulcer of left ankle with fat layer exposed; I73.9 Peripheral vascular disease, unspecified; L84 Corns and callosities; M79.675 Pain in left toe(s); B35.1 Tinea unguium; Z79.02 Long term (current) use of antithrombotics/antiplatelets; Z79.52 Long term (current) use of systemic steroids
CPT/HCPCS: 11042; A6253

== ENCOUNTER 2020-06-17 12:50 | Outpatient (CLI) | payer MEDICARE, OTHER ==
[2020-06-17] MEDS ORDERED: LIDOCAINE SOLN 4% 50 ML BOTTLE ONE (13:21)
== END 2020-06-17 23:59 | disposition home health service (06) ==
LOC: WOU 12:50
PROVIDERS: ATTEND Podiatrist Foot & Ankle Surgery
DX: I87.2 Venous insufficiency (chronic) (peripheral) (principal); L97.322 Non-pressure chronic ulcer of left ankle with fat layer exposed; I73.9 Peripheral vascular disease, unspecified; L84 Corns and callosities; B35.1 Tinea unguium; M79.675 Pain in left toe(s); Z79.02 Long term (current) use of antithrombotics/antiplatelets
CPT/HCPCS: 11042

== ENCOUNTER 2020-06-24 12:37 | Outpatient (CLI) | payer MEDICARE, OTHER ==
[2020-06-24] MEDS ORDERED: LIDOCAINE SOLN 4% 50 ML BOTTLE ONE (12:49)
== END 2020-06-24 23:59 | disposition home health service (06) ==
LOC: WOU 12:37
PROVIDERS: ATTEND Podiatrist Foot & Ankle Surgery
DX: I87.2 Venous insufficiency (chronic) (peripheral) (principal); L97.322 Non-pressure chronic ulcer of left ankle with fat layer exposed; I73.9 Peripheral vascular disease, unspecified; L84 Corns and callosities; B35.1 Tinea unguium; Z79.02 Long term (current) use of antithrombotics/antiplatelets
CPT/HCPCS: 11042

== ENCOUNTER 2020-07-01 12:45 | Outpatient (CLI) | payer MEDICARE, OTHER ==
[2020-07-01] MEDS ORDERED: LIDOCAINE SOLN 4% 50 ML BOTTLE ONE (13:02)
== END 2020-07-01 23:59 | disposition home health service (06) ==
LOC: WOU 12:45
PROVIDERS: ATTEND Podiatrist Foot & Ankle Surgery
DX: I87.2 Venous insufficiency (chronic) (peripheral) (principal); L97.322 Non-pressure chronic ulcer of left ankle with fat layer exposed; I73.9 Peripheral vascular disease, unspecified; L84 Corns and callosities; B35.1 Tinea unguium; M79.675 Pain in left toe(s); Z79.02 Long term (current) use of antithrombotics/antiplatelets
CPT/HCPCS: 11042

== ENCOUNTER 2020-07-08 12:45 | Outpatient (CLI) | payer MEDICARE, OTHER ==
[2020-07-08] MEDS ORDERED: LIDOCAINE SOLN 4% 50 ML BOTTLE ONE ×2 (13:32→14:10)
== END 2020-07-08 23:59 | disposition home health service (06) ==
LOC: WOU 12:45
PROVIDERS: ATTEND Podiatrist Foot & Ankle Surgery
DX: I87.2 Venous insufficiency (chronic) (peripheral) (principal); L97.322 Non-pressure chronic ulcer of left ankle with fat layer exposed; I73.9 Peripheral vascular disease, unspecified; L84 Corns and callosities; B35.1 Tinea unguium; M79.675 Pain in left toe(s); Z79.52 Long term (current) use of systemic steroids; Z79.02 Long term (current) use of antithrombotics/antiplatelets
CPT/HCPCS: 11042

== ENCOUNTER 2020-07-15 13:00 | Outpatient (CLI) | payer MEDICARE, OTHER | END 2020-07-15 23:59 | disposition home health service (06) | LOC: WOU 13:00 | PROVIDERS: ATTEND Podiatrist Foot & Ankle Surgery | DX: I87.2 Venous insufficiency (chronic) (peripheral) (principal); L97.322 Non-pressure chronic ulcer of left ankle with fat layer exposed; I73.9 Peripheral vascular disease, unspecified; M79.81 Nontraumatic hematoma of soft tissue; L84 Corns and callosities; M79.675 Pain in left toe(s); Z79.02 Long term (current) use of antithrombotics/antiplatelets | CPT/HCPCS: 10140; 11042; A6209 ==

== ENCOUNTER 2020-07-22 12:50 | Outpatient (CLI) | payer MEDICARE, OTHER ==
[2020-07-22] MEDS ORDERED: LIDOCAINE SOLN 4% 50 ML BOTTLE ONE (12:58)
== END 2020-07-22 23:59 | disposition home health service (06) ==
LOC: WOU 12:50
PROVIDERS: ATTEND Podiatrist Foot & Ankle Surgery
DX: I87.2 Venous insufficiency (chronic) (peripheral) (principal); L97.322 Non-pressure chronic ulcer of left ankle with fat layer exposed; L84 Corns and callosities; B35.1 Tinea unguium; M79.675 Pain in left toe(s); Z79.02 Long term (current) use of antithrombotics/antiplatelets
CPT/HCPCS: 11042; A6209

== ENCOUNTER 2020-07-29 12:45 | Outpatient (CLI) | payer MEDICARE, OTHER | END 2020-07-29 23:59 | disposition home health service (06) | LOC: WOU 12:45 | PROVIDERS: ATTEND Podiatrist Foot & Ankle Surgery | DX: I87.2 Venous insufficiency (chronic) (peripheral) (principal); L97.322 Non-pressure chronic ulcer of left ankle with fat layer exposed; I73.9 Peripheral vascular disease, unspecified; L84 Corns and callosities; M79.675 Pain in left toe(s); B35.1 Tinea unguium; Z79.02 Long term (current) use of antithrombotics/antiplatelets | CPT/HCPCS: 11042 ==

== ENCOUNTER 2020-08-05 12:50 | Outpatient (CLI) | payer MEDICARE, OTHER | END 2020-08-05 23:59 | disposition home health service (06) | LOC: WOU 12:50 | PROVIDERS: ATTEND Podiatrist Foot & Ankle Surgery | DX: I87.2 Venous insufficiency (chronic) (peripheral) (principal); L97.322 Non-pressure chronic ulcer of left ankle with fat layer exposed; I73.9 Peripheral vascular disease, unspecified; L84 Corns and callosities; B35.1 Tinea unguium; M79.672 Pain in left foot; Z79.02 Long term (current) use of antithrombotics/antiplatelets | CPT/HCPCS: 11042 ==

== ENCOUNTER 2020-08-12 12:35 | Outpatient (CLI) | payer MEDICARE, OTHER ==
[2020-08-12] MEDS ORDERED: LIDOCAINE SOLN 4% 50 ML BOTTLE ONE (12:55)
== END 2020-08-12 23:59 | disposition home health service (06) ==
LOC: WOU 12:35
PROVIDERS: ATTEND Podiatrist Foot & Ankle Surgery
DX: I87.2 Venous insufficiency (chronic) (peripheral) (principal); L97.322 Non-pressure chronic ulcer of left ankle with fat layer exposed; L97.422 Non-pressure chronic ulcer of left heel and midfoot with fat layer exposed; L84 Corns and callosities; I73.9 Peripheral vascular disease, unspecified; B35.1 Tinea unguium; M79.675 Pain in left toe(s); Z79.02 Long term (current) use of antithrombotics/antiplatelets
CPT/HCPCS: 11042

== ENCOUNTER 2020-08-19 13:00 | Outpatient (CLI) | payer MEDICARE, OTHER ==
[2020-08-19] MEDS ORDERED: LIDOCAINE SOLN 4% 50 ML BOTTLE ONE (13:11)
== END 2020-08-19 23:59 | disposition home health service (06) ==
LOC: WOU 13:00
PROVIDERS: ATTEND Podiatrist Foot & Ankle Surgery
DX: I87.2 Venous insufficiency (chronic) (peripheral) (principal); L97.322 Non-pressure chronic ulcer of left ankle with fat layer exposed; L97.422 Non-pressure chronic ulcer of left heel and midfoot with fat layer exposed; I73.9 Peripheral vascular disease, unspecified; R60.0 Localized edema; L84 Corns and callosities; B35.1 Tinea unguium; M79.675 Pain in left toe(s); Z79.02 Long term (current) use of antithrombotics/antiplatelets
CPT/HCPCS: 11042

== ENCOUNTER 2020-08-26 12:45 | Outpatient (CLI) | payer MEDICARE, OTHER ==
[2020-08-26] MEDS ORDERED: LIDOCAINE SOLN 4% 50 ML BOTTLE ONE (13:38)
== END 2020-08-26 23:59 | disposition home health service (06) ==
LOC: WOU 12:45
PROVIDERS: ATTEND Podiatrist Foot & Ankle Surgery
DX: I87.2 Venous insufficiency (chronic) (peripheral) (principal); L97.322 Non-pressure chronic ulcer of left ankle with fat layer exposed; R60.0 Localized edema; M25.572 Pain in left ankle and joints of left foot; L84 Corns and callosities; B35.1 Tinea unguium; M79.675 Pain in left toe(s); I73.9 Peripheral vascular disease, unspecified; Z79.02 Long term (current) use of antithrombotics/antiplatelets
CPT/HCPCS: 11042

== ENCOUNTER 2020-09-02 12:45 | Outpatient (CLI) | payer MEDICARE, OTHER | END 2020-09-02 23:59 | disposition home health service (06) | LOC: WOU 12:45 | PROVIDERS: ATTEND Podiatrist Foot & Ankle Surgery | DX: I87.2 Venous insufficiency (chronic) (peripheral) (principal); L97.322 Non-pressure chronic ulcer of left ankle with fat layer exposed; I73.9 Peripheral vascular disease, unspecified; M25.572 Pain in left ankle and joints of left foot; M79.675 Pain in left toe(s); L84 Corns and callosities; B35.1 Tinea unguium; Z79.02 Long term (current) use of antithrombotics/antiplatelets | CPT/HCPCS: 15271; Q4196 ==

== ENCOUNTER 2020-09-09 12:45 | Outpatient (CLI) | payer MEDICARE, OTHER | END 2020-09-09 23:59 | disposition home health service (06) | LOC: WOU 12:45 | PROVIDERS: ATTEND Podiatrist Foot & Ankle Surgery | DX: I87.2 Venous insufficiency (chronic) (peripheral) (principal); L97.322 Non-pressure chronic ulcer of left ankle with fat layer exposed; I73.9 Peripheral vascular disease, unspecified; R60.0 Localized edema; L84 Corns and callosities; M25.572 Pain in left ankle and joints of left foot; Z79.02 Long term (current) use of antithrombotics/antiplatelets | CPT/HCPCS: 15271; Q4196 ==

== ENCOUNTER 2020-09-16 12:45 | Outpatient (CLI) | payer MEDICARE, OTHER | END 2020-09-16 23:59 | disposition home health service (06) | LOC: WOU 12:45 | PROVIDERS: ATTEND Podiatrist Foot & Ankle Surgery | DX: I87.2 Venous insufficiency (chronic) (peripheral) (principal); L97.322 Non-pressure chronic ulcer of left ankle with fat layer exposed; I73.9 Peripheral vascular disease, unspecified; M76.72 Peroneal tendinitis, left leg; M25.572 Pain in left ankle and joints of left foot; M79.605 Pain in left leg; R60.0 Localized edema; L84 Corns and callosities; M79.675 Pain in left toe(s); S51.812A Laceration without foreign body of left forearm, initial encounter; X58.XXXA Exposure to other specified factors, initial encounter; Y92.89 Other specified places as the place of occurrence of the external cause; Z79.02 Long term (current) use of antithrombotics/antiplatelets | CPT/HCPCS: 11042 ==

== ENCOUNTER 2020-09-23 12:45 | Outpatient (CLI) | payer MEDICARE, OTHER ==
[2020-09-23] MEDS ORDERED: LIDOCAINE SOLN 4% 50 ML BOTTLE ONE (13:10)
== END 2020-09-23 23:59 | disposition home health service (06) ==
LOC: WOU 12:45
PROVIDERS: ATTEND Podiatrist Foot & Ankle Surgery
DX: I87.2 Venous insufficiency (chronic) (peripheral) (principal); L97.322 Non-pressure chronic ulcer of left ankle with fat layer exposed; I73.9 Peripheral vascular disease, unspecified; L84 Corns and callosities; M76.72 Peroneal tendinitis, left leg; M25.572 Pain in left ankle and joints of left foot; M79.605 Pain in left leg; M79.675 Pain in left toe(s); B35.1 Tinea unguium; R60.0 Localized edema; Z79.02 Long term (current) use of antithrombotics/antiplatelets
CPT/HCPCS: 11042; A6210

== ENCOUNTER 2020-09-30 12:55 | Outpatient (CLI) | payer MEDICARE, OTHER ==
[2020-09-30] MEDS ORDERED: LIDOCAINE SOLN 4% 50 ML BOTTLE ONE (13:44)
== END 2020-09-30 23:59 | disposition home health service (06) ==
LOC: WOU 12:55
PROVIDERS: ATTEND Podiatrist Foot & Ankle Surgery
DX: I87.2 Venous insufficiency (chronic) (peripheral) (principal); L97.322 Non-pressure chronic ulcer of left ankle with fat layer exposed; I73.9 Peripheral vascular disease, unspecified; L84 Corns and callosities; M79.675 Pain in left toe(s); B35.1 Tinea unguium; M25.572 Pain in left ankle and joints of left foot; M79.605 Pain in left leg; R60.0 Localized edema
CPT/HCPCS: 11042; A6210

== ENCOUNTER 2020-10-07 12:55 | Outpatient (CLI) | payer MEDICARE, OTHER ==
[2020-10-07] MEDS ORDERED: LIDOCAINE SOLN 4% 50 ML BOTTLE ONE (13:18)
== END 2020-10-07 23:59 | disposition home health service (06) ==
LOC: WOU 12:55
PROVIDERS: ATTEND Podiatrist Foot & Ankle Surgery
DX: I87.2 Venous insufficiency (chronic) (peripheral) (principal); L97.322 Non-pressure chronic ulcer of left ankle with fat layer exposed; I73.9 Peripheral vascular disease, unspecified; L84 Corns and callosities; B35.1 Tinea unguium; R60.0 Localized edema; M76.72 Peroneal tendinitis, left leg; M25.572 Pain in left ankle and joints of left foot; M79.605 Pain in left leg; Z79.02 Long term (current) use of antithrombotics/antiplatelets
CPT/HCPCS: 15271; Q4196

== ENCOUNTER 2020-10-14 13:00 | Outpatient (CLI) | payer MEDICARE, OTHER ==
[2020-10-14] MEDS ORDERED: UREA 10% -AHA 4% CREAM 57 GM TUBE ONE (13:30)
== END 2020-10-14 23:59 | disposition home health service (06) ==
LOC: WOU 13:00
PROVIDERS: ATTEND Podiatrist Foot & Ankle Surgery
DX: I87.2 Venous insufficiency (chronic) (peripheral) (principal); L97.322 Non-pressure chronic ulcer of left ankle with fat layer exposed; I73.9 Peripheral vascular disease, unspecified; L84 Corns and callosities; B35.1 Tinea unguium; R60.0 Localized edema; M25.572 Pain in left ankle and joints of left foot; M76.72 Peroneal tendinitis, left leg; M79.605 Pain in left leg; Z79.02 Long term (current) use of antithrombotics/antiplatelets
CPT/HCPCS: 15271; Q4196

== ENCOUNTER 2020-10-21 12:44 | Outpatient (CLI) | payer MEDICARE, OTHER ==
[2020-10-21] MEDS ORDERED: LIDOCAINE SOLN 4% 50 ML BOTTLE ONE (13:04)
== END 2020-10-21 23:59 | disposition home or self-care (01) ==
LOC: WOU 12:44
PROVIDERS: ATTEND Podiatrist Foot & Ankle Surgery
DX: I87.2 Venous insufficiency (chronic) (peripheral) (principal); L97.322 Non-pressure chronic ulcer of left ankle with fat layer exposed; M76.72 Peroneal tendinitis, left leg; I73.9 Peripheral vascular disease, unspecified; M06.9 Rheumatoid arthritis, unspecified; D84.9 Immunodeficiency, unspecified; B35.1 Tinea unguium; R60.0 Localized edema; M79.675 Pain in left toe(s); Z79.899 Other long term (current) drug therapy; Z79.02 Long term (current) use of antithrombotics/antiplatelets
CPT/HCPCS: 11042; 11045

== ENCOUNTER 2020-10-28 12:45 | Outpatient (CLI) | payer MEDICARE, OTHER ==
[2020-10-28] MEDS ORDERED: LIDOCAINE SOLN 4% 50 ML BOTTLE ONE (12:51)
[2020-10-28] MEDS ORDERED: COLLAGENASE 5 GM TUBE UD TP ONE (13:38)
== END 2020-10-28 23:59 | disposition home health service (06) ==
LOC: WOU 12:45
PROVIDERS: ATTEND Podiatrist Foot & Ankle Surgery
DX: I87.2 Venous insufficiency (chronic) (peripheral) (principal); L97.322 Non-pressure chronic ulcer of left ankle with fat layer exposed; Z96.642 Presence of left artificial hip joint; M06.9 Rheumatoid arthritis, unspecified; M81.0 Age-related osteoporosis without current pathological fracture; I73.9 Peripheral vascular disease, unspecified; L84 Corns and callosities
CPT/HCPCS: 11042

== ENCOUNTER 2020-11-04 12:45 | Outpatient (CLI) | payer MEDICARE, OTHER ==
[2020-11-04] MEDS ORDERED: COLLAGENASE 5 GM TUBE UD TP ONE (13:43)
== END 2020-11-04 23:59 | disposition home health service (06) ==
LOC: WOU 12:45
PROVIDERS: ATTEND Podiatrist Foot & Ankle Surgery
DX: I87.8 Other specified disorders of veins (principal); L97.322 Non-pressure chronic ulcer of left ankle with fat layer exposed; R60.0 Localized edema; I73.9 Peripheral vascular disease, unspecified; L84 Corns and callosities; M06.9 Rheumatoid arthritis, unspecified; D84.9 Immunodeficiency, unspecified; Z88.1 Allergy status to other antibiotic agents; Z96.642 Presence of left artificial hip joint; M76.72 Peroneal tendinitis, left leg; M79.675 Pain in left toe(s); M79.605 Pain in left leg; Z79.899 Other long term (current) drug therapy
CPT/HCPCS: 11042

== ENCOUNTER 2020-11-11 12:45 | Outpatient (CLI) | payer MEDICARE, OTHER ==
[2020-11-11] MEDS ORDERED: LIDOCAINE SOLN 4% 50 ML BOTTLE ONE (13:04)
[2020-11-11] MEDS ORDERED: COLLAGENASE 5 GM TUBE UD TP ONE (13:39)
== END 2020-11-11 23:59 | disposition home health service (06) ==
LOC: WOU 12:45
PROVIDERS: ATTEND Podiatrist Foot & Ankle Surgery
DX: I87.2 Venous insufficiency (chronic) (peripheral) (principal); L97.322 Non-pressure chronic ulcer of left ankle with fat layer exposed; I73.9 Peripheral vascular disease, unspecified; L84 Corns and callosities; M25.572 Pain in left ankle and joints of left foot; M79.675 Pain in left toe(s); B35.1 Tinea unguium; M79.605 Pain in left leg; R60.0 Localized edema; Z79.02 Long term (current) use of antithrombotics/antiplatelets
CPT/HCPCS: 11042; 11056

== ENCOUNTER 2020-11-20 08:35 | Outpatient (CLI) | payer MEDICARE, OTHER ==
[2020-11-20] MEDS ORDERED: LIDOCAINE SOLN 4% 50 ML BOTTLE ONE (08:41)
[2020-11-20] MEDS ORDERED: COLLAGENASE 5 GM TUBE UD TP ONE (09:17)
== END 2020-11-20 23:59 | disposition home health service (06) ==
LOC: WOU 08:35
PROVIDERS: ATTEND Podiatrist Foot & Ankle Surgery
DX: I87.2 Venous insufficiency (chronic) (peripheral) (principal); L97.322 Non-pressure chronic ulcer of left ankle with fat layer exposed; I73.9 Peripheral vascular disease, unspecified; L84 Corns and callosities; M79.675 Pain in left toe(s); M25.572 Pain in left ankle and joints of left foot; M76.72 Peroneal tendinitis, left leg; M79.605 Pain in left leg; R60.0 Localized edema; B35.1 Tinea unguium; Z79.02 Long term (current) use of antithrombotics/antiplatelets
CPT/HCPCS: 11042

== ENCOUNTER 2020-11-25 12:45 | Outpatient (CLI) | payer MEDICARE, OTHER ==
[2020-11-25] MEDS ORDERED: LIDOCAINE SOLN 4% 50 ML BOTTLE ONE (12:53)
[2020-11-25] MEDS ORDERED: COLLAGENASE 5 GM TUBE UD TP ONE (14:12)
== END 2020-11-25 23:59 | disposition home health service (06) ==
LOC: WOU 12:45
PROVIDERS: ATTEND Podiatrist Foot & Ankle Surgery
DX: I87.2 Venous insufficiency (chronic) (peripheral) (principal); L97.322 Non-pressure chronic ulcer of left ankle with fat layer exposed; L84 Corns and callosities; I73.9 Peripheral vascular disease, unspecified; B35.1 Tinea unguium; M25.572 Pain in left ankle and joints of left foot; R60.0 Localized edema; M79.675 Pain in left toe(s); Z79.02 Long term (current) use of antithrombotics/antiplatelets
CPT/HCPCS: 11042

== ENCOUNTER 2020-12-02 12:50 | Outpatient (CLI) | payer MEDICARE, OTHER ==
[2020-12-02] MEDS ORDERED: LIDOCAINE SOLN 4% 50 ML BOTTLE ONE (13:09)
[2020-12-02] MEDS ORDERED: COLLAGENASE 5 GM TUBE UD TP ONE (13:52)
== END 2020-12-02 23:59 | disposition home health service (06) ==
LOC: WOU 12:50
PROVIDERS: ATTEND Podiatrist Foot & Ankle Surgery
DX: I87.2 Venous insufficiency (chronic) (peripheral) (principal); L97.322 Non-pressure chronic ulcer of left ankle with fat layer exposed; I73.9 Peripheral vascular disease, unspecified; L84 Corns and callosities; M79.675 Pain in left toe(s); B35.1 Tinea unguium; M25.572 Pain in left ankle and joints of left foot; R60.0 Localized edema; Z79.02 Long term (current) use of antithrombotics/antiplatelets
CPT/HCPCS: 11042; J7040

== ENCOUNTER 2020-12-09 12:45 | Outpatient (CLI) | payer MEDICARE, OTHER ==
[2020-12-09] MEDS ORDERED: LIDOCAINE SOLN 4% 50 ML BOTTLE ONE (12:54)
[2020-12-09] MEDS ORDERED: COLLAGENASE 5 GM TUBE UD TP ONE (13:33)
== END 2020-12-09 23:59 | disposition home health service (06) ==
LOC: WOU 12:45
PROVIDERS: ATTEND Podiatrist Foot & Ankle Surgery
DX: I87.2 Venous insufficiency (chronic) (peripheral) (principal); L97.322 Non-pressure chronic ulcer of left ankle with fat layer exposed; I73.9 Peripheral vascular disease, unspecified; L84 Corns and callosities; M25.572 Pain in left ankle and joints of left foot; M79.675 Pain in left toe(s); R60.0 Localized edema; Z79.02 Long term (current) use of antithrombotics/antiplatelets
CPT/HCPCS: 11042; A6253

== ENCOUNTER 2020-12-16 12:55 | Outpatient (CLI) | payer MEDICARE, OTHER ==
[2020-12-16] MEDS ORDERED: COLLAGENASE 5 GM TUBE UD TP ONE (13:44)
== END 2020-12-16 23:59 | disposition home health service (06) ==
LOC: WOU 12:55
PROVIDERS: ATTEND Podiatrist Foot & Ankle Surgery
DX: I87.2 Venous insufficiency (chronic) (peripheral) (principal); L97.322 Non-pressure chronic ulcer of left ankle with fat layer exposed; I73.9 Peripheral vascular disease, unspecified; M25.572 Pain in left ankle and joints of left foot; R60.0 Localized edema; L84 Corns and callosities; B35.1 Tinea unguium; M79.675 Pain in left toe(s); M06.9 Rheumatoid arthritis, unspecified; Z96.642 Presence of left artificial hip joint; Z79.02 Long term (current) use of antithrombotics/antiplatelets
CPT/HCPCS: 11042